=== PATIENT | male | born 1970 | race Caucasian/White ===

== ENCOUNTER 2019-06-11 13:15 | Inpatient (IN) | payer OTHER ==
[~2019-06-11] VITALS: Ht 170.2 cm; Wt 111.6 kg
[2019-06-11 13:21] VITALS: Ht 170.2 cm; Wt 111.6 kg
[2019-06-11 14:18] LABS: BASOPHIL % 0.3 % (0-2); PLATELET COUNT 184 x10^3mcL (130-400); RED CELL DISTRIBUTION WIDTH 13.1 % (11.5-14.5)
[2019-06-11 14:30] LABS: CARBON DIOXIDE 26.8 mmol/L (21-32); CHLORIDE SERUM 109 mmol/L (98-107); GFR1 > 60 mL/min; GLUCOSE SERUM 103 mg/dL (74-106); SODIUM SERUM 143 mmol/L (136-145)
--- NOTE | 2019-06-11 14:33 | NUR ---
PT SEEN BY PROVIDER, MEDICATED PER ORDER, PT HAD AN EPISODE OF CENTRAL CHEST PAIN; NO N/V, PT STS HAS SOME PRESSURE TO THROAT, BUT TOLERABLE; PT STS WILL EXPERIENCE AN INCREASE ON CHEST PRESSURE AND THROAT PRESSURE WHILE WALKING LONG DISTANCES; WILL MONITOR
[2019-06-11 14:42] LABS: ALBUMIN 3.8 g/dL (3.4-5.0); ALKALINE PHOSPHATASE 75 U/L (46-116); ALT/SGPT 35 U/L (16-63); AST/SGOT 18 U/L (15-37); BILIRUBIN TOTAL 0.3 mg/dL (0.20-1.00); LIPASE 115 IU/L (73-393); T4(THYROXINE) 7.1 ug/dL (4.7-13.3); TOTAL PROTEIN, SERUM 6.9 g/dL (6.4-8.2)
[2019-06-11 14:47] LABS: CHOLESTEROL 131 mg/dL (<200); HDL CHOLESTEROL 24 mg/dL (40-60)
--- NOTE | 2019-06-11 15:22 | NUR ---
PT STS IS FEELING MUCH BETTER, IS PAIN FREE AT THIS TIME, NOTED TO BE VERY CONCERNED WITH CONTINUING OF PAIN, PT GAMALIEL MEDICATION WELL, NO C/O HEAD ACHE OR FUTHER CHEST PAIN
[2019-06-11] MEDS ORDERED: ATENOLOL100 MG PO (15:51)
[2019-06-11] MEDS ORDERED: LIPI20 PO (15:51)
[2019-06-11] MEDS ORDERED: MOTRIN PO (15:52)
--- NOTE | 2019-06-11 15:56 | NUR ---
PT ADMIT APPROVED/REC'D; HOSPITALIST AT BEDSIDE FOR FURTHER EVAL/ASSESSMENT; BED ASSIGNMENT REC'D
--- NOTE | 2019-06-11 16:04 | NUR ---
REPORT GIVEN TO JACLYN ARTIS; UPDATED THAT PT HAS NOT GIVEN URINE, HOSPITALIST COMPLETED ASSESSMENT; PT TO BE TRANSPORTED TO BED 234-B
[2019-06-11 16:11] LABS: MAGNESIUM 1.8 mg/dL (1.8-2.4)
[2019-06-11 16:36] VITALS: BP 133/76
--- NOTE | 2019-06-11 16:43 | NUR ---
RECEIVED PT FROM ER, PT ADMIT FOR CHEST PAIN, PT IS A/O X4, VERBAL RESPONSIVE, ABLE TO TELL WHAT HE NEEDS. LUNG SOUND CLEAR BILATERAL, NO COUGH, NO SOB, PT IS ON TELE 18, NSR, DENY ANY CHEST PAIN OR DISCOMFORT, BOWEL SOUND PRESENT ALL 4 QUADRANTS, NO DISTENTION, NO TENDER. PEDAL PULS PRESENT BOTH FEET, NO EDEMA, IV AT LEFT AC, NO LEAKING, NO INFILTRATION. ALL ADLS ASSIST, ALL NEED MET, CALL LIGHT IN REACH, WILL CONTINUE TO MONITOR.
--- NOTE | 2019-06-11 18:04 | NUR ---
MADE DR KU AWARE OF TROP 0.141
[2019-06-11 18:20] VITALS: BP 125/62
--- NOTE | 2019-06-11 18:33 | NUR ---
PT RESTING IN BED. DENIES CHEST PAIN OR PRESSURE AT THIS TIME. HEPLOCK PATENT. BED IN LOW POSITION. CALL LIGHT WITHIN REACH. WILL CONTINUE TO MONITOR.
--- NOTE | 2019-06-11 19:30 | NUR ---
PT IAS A/O x4. ON TELE #18, NSR. DENIES ANY CHEST PAIN OR PRESSURE. PULSES ARE PRESENT. NO EDEMA NOTED. LUNGS CLEAR IN ALL HOBBS. NO SIGN OF RESP DISTRESS OR SOB. EQUAL CHEST RISE AND FALL. BOWEL SOUNDS PRESENT X4. DENIES ANY ABD PAIN. SKIN WARM AND INTACT. DENIES ANY PAIN AT THIS TIME. IV ON LAC INTACT AND PATENT. BED IS AT LOWEST SETTING. CALL LIGHT WITHIN REACH. AT BEDSIDE. WILL CONTINUE TO MONTIOR.
[2019-06-11 20:13] VITALS: BP 121/69
--- NOTE | 2019-06-12 00:02 | NUR ---
PT IS RESTING IN BED. DENIES ANY PAIN OR DISTRESS. RESTING COMFORTABLE. BED AT LOWEST SETTING. CALL LIGHT WITHIN REACH. WILL CONTIUE TO TWILA.
[2019-06-12 05:40] VITALS: BP 129/81
[2019-06-12 05:41] LABS: BASOPHIL % 0.3 % (0-2); PLATELET COUNT 173 x10^3mcL (130-400); RED CELL DISTRIBUTION WIDTH 13.2 % (11.5-14.5)
[2019-06-12 05:43] LABS: CALCIUM 8.7 mg/dL (8.5-10.1); CARBON DIOXIDE 28.9 mmol/L (21-32); CHLORIDE SERUM 107 mmol/L (98-107); GFR1 > 60 mL/min; GLUCOSE SERUM 97 mg/dL (74-106); MAGNESIUM 1.8 mg/dL (1.8-2.4); PHOSPHOROUS 3.8 mg/dL (2.5-4.9); SODIUM SERUM 143 mmol/L (136-145)
--- NOTE | 2019-06-12 06:18 | NUR ---
PT IS RESTING IN BED WITH BOTH EYES CLOSED. BREATHING EVEN AND UNALBORED. NO SIGN OF DISTRESS NOTED. NO ACUTE EVEN OCCURED DURNG SHIFT. BED IS AT LOWEST SETTING. CALL LIGHT WITHIN REACH. WILL ENDORSE TO AM NURSE.
--- NOTE | 2019-06-12 07:05 | NUR ---
RECEIVED PT FROM SHIFT NURSE A/OX4 LYING IN BED. DENIES CHEST PAIN OR PRESSURE. HEPLOCK PATENT. CALL LIGHT WITHIN REACH. WILL CONTINUE TO MONITOR.
[2019-06-12 07:35] VITALS: BP 142/82
--- NOTE | 2019-06-12 09:28 | NUR ---
PT SITTING UP IN BED TALKING ON THE PHONE. NO ACUTE DISTRESS NOTED. CALL LIGHT WITHIN REACH. WILL CONTINUE TO MONITOR.
--- NOTE | 2019-06-12 12:53 | NUR ---
PT SITTING UP IN BED TALKING WITH FAMILY MEMBER. DENIES CHEST PAIN OR PRESSURE. CALL LIGHT WITHIN REACH. WILL CONTINUE TO MONITOR.
[2019-06-12 12:55] VITALS: BP 135/77
--- NOTE | 2019-06-12 15:05 | NUR ---
PT ASLEEP BUT AROUSABLE. CALL LIGHT WITHIN REACH. WILL CONTINUE TO MONITOR.
[2019-06-12 16:43] VITALS: BP 143/79
[2019-06-12 17:43] LABS: microscopic required? NO
[2019-06-12 17:47] LABS: urine erythrocyte NEGATIVE (NEGATIVE)
[2019-06-12 17:55] LABS: AMPHETAMINE QUAL UR NONE DETECTED (See below)
--- NOTE | 2019-06-12 18:18 | NUR ---
PT RESTING IN BED. DENIES CHEST PAIN OR PRESSURE. HEPLOCK PATENT. CALL LIGHT WITHIN REACH. WILL BE ENDORSED.
--- NOTE | 2019-06-12 19:30 | NUR ---
PT IS A/O x4. ON TELE #18, NSR. DENIES ANY CHEST PAIN OR PRESSURE. PULSES ARE PRESENT. NO EDEMA NOTED. LUNGS CLEAR IN ALL FEILDS. ON RA, DENIES ANY SOB. EQUAL CHEST RISE AND FALL. NO SIGN OF RESP DISTRESS. BOWEL SOUNDS PRESENT x4. DENIES ANY ABD PAIN OR DISTRESS. SKIN WARM AND INTACT. DENIES ANY PAIN AT THIS TIME. SALINE LOCKED ON LAC INTACT AND PATENT. NO SIGN OF INFILTRATION. BED IS AT LOWEST SETTING. CALL LIGHT WITHIN REACH. WILL CONTINUE TO MONITOR.
[2019-06-12 20:40] VITALS: BP 139/86
[2019-06-13] VITALS (16 sets, daily range): BP systolic 119–167; BP diastolic 64–89
--- NOTE | 2019-06-13 01:31 | NUR ---
PT IS RESTING IN BED WITH BOTH EYES CLOSED. BREATHING EVEN AND UNLABORED. NO SIGN OF DISTRESS NOTED. BED IS AT LOWEST SETTING. CALL LIGHT WIHTIN REACH. WILL CONTINUE TO MONTIOR.
--- NOTE | 2019-06-13 06:16 | NUR ---
PT IS RESTING IN BED. DENIES ANY PAIN OR DISTRESS AT THIS TIME. DENIES ANY CHEST PAIN OR PRESSURE. EKG SHOWS PT CONVERTED FROM NSR TO SR WITH AND INVERATED T WAVE. MD WHITE WAS MADE AWARE. NO NEW ORDERS. NO OTHER ACUTE EVENT OCCURED DURING SHIFT. BED IS AT LOWEST SETTING. CALL LIGHT WITHIN REACH. WILL ENDORSE TO AM NURSE.
[2019-06-13 06:25] LABS: CALCIUM 8.8 mg/dL (8.5-10.1); CARBON DIOXIDE 29.7 mmol/L (21-32); CHLORIDE SERUM 107 mmol/L (98-107); CREATININE SERUM 1.1 mg/dL (0.7-1.3); GFR1 > 60 mL/min; GLUCOSE SERUM 99 mg/dL (74-106); POTASSIUM SERUM 3.9 mmol/L (3.5-5.1); SODIUM SERUM 144 mmol/L (136-145)
[2019-06-13 06:28] LABS: BASOPHIL % 0.4 % (0-2); PLATELET COUNT 166 x10^3mcL (130-400)
--- NOTE | 2019-06-13 07:45 | NUR ---
RECEIVED AWAKE, ALERT AND ORIENTED. IN NO RESP. DISTRESS. VS WNL. NO C/O CHEST PAIN OR DISCOMFORT, HL PATENT. CALL LIGHT WITHIN REACH. WILL CONTINUE WITH PLAN OF CARE.
--- NOTE | 2019-06-13 10:57 | NUR ---
IVF STARTED AND INFUSING WELL. PT IN NO DISTRESS. FAMILY AT BEDSIDE.
--- NOTE | 2019-06-13 13:30 | NUR ---
LEFT TO DESIGN MAINTENANCE ENGINEER IN NO DISTRESS.
--- NOTE | 2019-06-13 14:38 | NUR ---
2980 PATIENT RECEIVED TO UNIT VIA BED AND ACCOMPANIED BY SALESPERSON ART OBJECTS RNS AND . PATIENT ALERT AND AWAKE AND ABLE TO MAKE ALL NEEDS KNOWN. NO SOB NOTED. RESPIRATIONS EVEN AND UNLABORED. DENIES ANY DISTRESS AT THIS TIME. PATIENT AND PROVIDED TEACHING REGARDING PLAN OF CARE AND VERBALIZED UNDERSTANDING. R AND L GROIN SITES SHAVED AND PREPPED PER PROTOCOL. LAC IV NOTED PATENT AND INTACT. PATIENT MADE COMFORTABLE. CALL LIGHT WITHIN REACH. WILL CONTINUE TO MONITOR.
--- NOTE | 2019-06-13 14:40 | NUR ---
1430 PATIENT TRANSPORTED TO ATMOSPHERIC PHYSICIST AT THIS TIME VIA BED AND ACCOMPANIED BY ATMOSPHERIC PHYSICIST RNS. PATIENT IN STABLE CONDITION. ALL NEEDS MET.
--- NOTE | 2019-06-13 16:59 | NUR ---
7643 PATIENT RECEIVED BACK TO UNIT VIA BED AND ACCOMPANIED BY SPRING FORGER RNS, AND TECH. PATIENT ALERT AND AWAKE AND ABLE TO MAKE ALL NEEDS KNOWN. NO SOB NOTED. RESPIRATIONS EVEN AND UNLABORED. DENIES ANY DISTRESS AT THIS TIME. PATIENT NOTED WITH ARM BOARD AND TR BAND TO R RADIAL AREA. TR BAND IN PLACE WITH NO BLEEDING NOTED. VSS. BEDSIDE ENDORSEMENT RECEIVED. PATIENT MADE COMFORTABLE. PATIENT SEEN AND EXAMINED BY DR. MORROW AND PROVIDED TEACHING TO PATIENT AND . BOTH VERBALIZED UNDERSTANDING. COMFORT AND SAFETY MEASURES IN PLACE. CALL LIGHT WITHIN REACH. WILL CONTINUE TO MONITOR.
--- NOTE | 2019-06-13 17:21 | NUR ---
1715 PATIENT ALERT AND AWAKE AND ABLE TO MAKE ALL NEEDS KNOWN. NO SOB NOTED. RESPIRATIONS EVEN AND UNLABORED. DENIES ANY DISTRESS AT THIS TIME. PATIENT CONTINUES TO HAVE ARM BOARD TO RUE AND TR BAND TO R RADIAL AREA. NO BLEEDING NOTED. PATIENT MADE COMFORTABLE. CALL LIGHT WITHIN REACH. WILL CONTINUE TO MONITOR.
--- NOTE | 2019-06-13 18:00 | NUR ---
6001 PATIENT ALERT AND AWAKE AND ABLE TO MAKE ALL NEEDS KNOWN. NO SOB NOTED. RESPIRATIONS EVEN AND UNLABORED. DENIES ANY DISTRESS AT THIS TIME. REMOVED 3MLS FROM TR BAND AT THIS TIME WITH NO BLEEDING TO RADIAL AREA NOTED. PATIENT MADE COMFORTABLE. WILL CONTINUE TO MONITOR.
--- NOTE | 2019-06-13 18:01 | NUR ---
PT BACK FROM [facility] ROOM IN NO RESP. DISTRESS. AWAKE, ALERT AND ORIENTED.BP SLIGHTLY ELEVETED BUT PT ASYMPTOMATIC. DENIES CHEST DISCOMFORT OR LIGHTHEADED. TR BAND IN PLACE. 3ML OF AIR REMOVED AT 1755, NO BLEEDING NOTED AT THE SITE. NO HEMATOMA, DISTAL END OR RT UPPER EXTREMITIES WITH +PULSES.PT ABLE TO WIGGLE FINGERS. INSTRUCTED TO KEEP RT ARM IN PLACE AND NOT TO MOVE UNTIL INSTRUCTED TO DO SO. FAMILY AT BEDSIDE.
--- NOTE | 2019-06-13 18:01 | NUR ---
1750 PATIENT TRANSPORTED BACK TO FLOOR VIA BED AND RECEIVED BY EDWARD ANAYA. BEDSIDE ENDORSEMENT RECEIVED. VSS. PATIENT WITH FAMILY AT BEDSIDE. PATIENT MADE COMFORTABLE. CALL LIGHT WITHIN REACH. WILL CONTINUE TO MONITOR.
--- NOTE | 2019-06-13 18:15 | NUR ---
3ML OF AIR REMOVED FROM TR BAND PER ORDER. NO BLEEDING NOTED AT THE SITE. NO HEMATOMA. WILL CONTINUE TO MONITOR.
--- NOTE | 2019-06-13 18:28 | NUR ---
NOTIFIED BY KIMBERLYN WEISS RN WHO IS TAKING CARE OF THE PT THAT HE IS REFERED SMOKE CONTROL SUPERVISOR TO TRANSFER PT TO [place] FOR CABG EVAL AND THE ACCEPTING DOCTOR IS DOCTOR LELO MORROW. CALLED [facility] AND SPOKE TO JOE AND SHE SAID SOMEBODY ALREADY CALLED ABOUT THE PT AT 1630 PM. JOE ASKED ME TO FAX ALL INFORMATION ABOUT THE PT. NOTIFIED JHONATAN TO FAX INFORMATION TO [facility] @ [phone].
--- NOTE | 2019-06-13 18:30 | NUR ---
3ML OR AIR REMOVED FROM TR BAND MAKE IT TOTAL OF 12ML. PT TOLERATE WELL, NO BLEEDING NOTED. NO HEMATOMA. +PULSES TO DISTAL END OF RT ARM.
--- NOTE | 2019-06-13 19:06 | NUR ---
REMOVED 3ML OF AIR OUT OF TR BAND PER ORDER. PT IN NO DISTRESS. ALERT AND ORIENTED. DENIES CHEST DISCOMFORT. NO SOB NOTED. VS WNL. IVF INFUSING PER ORDER AND SITE CLEAR. FAMILY AT BEDSIDE.
--- NOTE | 2019-06-13 19:30 | NUR ---
RECIEVED PT IN NO ACUTE DISTRESS. AOX4. TELE #18, SR. DENIES CP. BREATHING E/U. IV TO LAC, PATENT, NO REDNESS/SWELLING. TR-BAND TO R WRIST. 3 ML AIR REMOVED AT 1915. 0 ML REMAINING. PULSES PALPABLE. NO HEMATOMA/SWELLING. IMMOBILIZER IN PLACE. PT TO BE TRANSFERRED TO [facility], AWAITING AVAILABLE BED. BED IN LOWEST POSITION, 2 SIDE RAILS UP, CALL LIGHT IN REACH. INSTRUCTED TO CALL FOR ASSISTANCE.
--- NOTE | 2019-06-13 19:30 | NUR ---
PT REMAINS IN NO DISTRESS, AWAKE AND ALERT. LAST 3ML OF AIR REMOVED FROM TR BAND. NO HEMATOMA NOR BLEEDING NOTED. +PULSES. NO SWELLING OR REDNESS OF RT ARM. PT DENIES PAIN OR DISCOMFORT AT THIS TIME. CALL LIGHT WITHIN REACH. WILL BE ENDORSED TO INCOMING SHIFT.
--- NOTE | 2019-06-13 21:08 | NUR ---
Received a call from Jose Miguel poon at [facility]. The bed will be 252B and will be available at 2300. The number to call report to [phone]. Info given to Sofia Mckeon...They will arrange for transport.
--- NOTE | 2019-06-13 22:40 | NUR ---
REPORT GIVEN TO EVELYN ANAYA FROM [facility]. PT TO GO TO ROOM 252B. EXPECTED ARRIVAL OF [facility]SPORT [id number].
--- NOTE | 2019-06-14 00:24 | NUR ---
REPORT GIVEN TO NEYDA FROM [facility] TO TRANSFER TO [facility] VIA [facility]. PT IN NO ACUTE DISTRESS. TELE #18 RETURNED TO TELE MONITOR.
== END 2019-06-14 00:25 | disposition short-term general hospital (02) | DRG 282 ==
LOC: ED 13:15 → DU 15:27
PROVIDERS: Emergency Medicine; Internal Medicine; ADMIT Internal Medicine
PROC: B216YZZ Fluoroscopy of Right and Left Heart using Other Contrast (ICD-10-PCS; 2019-06-13)
PROC: 4A023N7 Measurement of Cardiac Sampling and Pressure, Left Heart, Percutaneous Approach (ICD-10-PCS; principal; 2019-06-13 15:00)
DX: I21.4 Non-ST elevation (NSTEMI) myocardial infarction (principal); I25.10 Atherosclerotic heart disease of native coronary artery without angina pectoris; E78.00 Pure hypercholesterolemia, unspecified; I10 Essential (primary) hypertension; E66.9 Obesity, unspecified; Z79.82 Long term (current) use of aspirin; Z68.37 Body mass index [BMI] 37.0-37.9, adult; Z87.891 Personal history of nicotine dependence
CPT/HCPCS: CLHCL; 76937; 83880; C1760; C1769; C1887; C1894; G0378; J0360; J1644; J2001; J2250; J3010; J3490; J7030; Q0092; Q9967